=== PATIENT | male | born 1955 | race African-American/Black ===

== ENCOUNTER 2024-01-02 19:53 | Emergency (ER) | payer MEDICARE, OTHER ==
[2024-01-02 20:38] LABS: Bilirubin Negative (Negative); Blood, Urine Small (Negative); Clarity Clear (Clear); Glucose, Urine (Dipstick) Negative (Negative); Ketone, Urine 15 mg/dL (Negative); Leukocyte Negative (Negative); Nitrite Negative (Negative); Protein, Urine (Dipstick) Trace mg/dL (Neg-Trace); pH, Urine 5.5 (5.0-9.0)
[2024-01-02 20:39] LABS: Specific Gravity, Urine 1.028 (1.002-1.036)
[2024-01-02 20:57] LABS: Bacteria/HPF Rare-Few HPF (None Seen); Calcium Oxalate Crystals 1+ HPF (None Seen); WBC/HPF 0-3 HPF (0-3)
[2024-01-02] MEDS ORDERED: metroNIDAZOLE 500 MG TAB ONE (21:20)
== END 2024-01-02 21:28 | disposition home or self-care (01) ==
LOC: NAV ERS 19:53
DX: Z20.2 Contact with and (suspected) exposure to infections with a predominantly sexual mode of transmission (principal); F17.290 Nicotine dependence, other tobacco product, uncomplicated
CPT/HCPCS: 81001; 99283

== ENCOUNTER 2024-09-07 13:15 | Emergency (ER) | payer MEDICARE, MEDICAID | END 2024-09-07 15:15 | disposition home or self-care (01) | LOC: NAV ERS 13:15 | DX: B34.9 Viral infection, unspecified (principal); F17.290 Nicotine dependence, other tobacco product, uncomplicated | CPT/HCPCS: 87428; 99283 ==